=== PATIENT | female | born 1985 | race Caucasian/White ===

== ENCOUNTER 2019-03-07 08:41 | Emergency (ER) | payer SELFPAY ==
[~2019-03-07] VITALS: Ht 162.6 cm; Wt 63.5 kg
[2019-03-07] MEDS ORDERED: ACETAMINOPHEN 325 MG TABLET PO ONE (09:00)
[2019-03-07] MEDS ORDERED: ONDANSETRON ODT 4 MG TAB.RAPDIS SL ONE (09:00)
[2019-03-07] MEDS ORDERED: ONDANSETRON ODT 4 MG TAB.RAPDIS ONE (09:01)
[2019-03-07] MEDS ORDERED: ACETAMINOPHEN 325 MG TABLET ONE (09:01)
--- NOTE | 2019-03-07 09:05 | NUR ---
PATIENT C/O CHEST PAIN. 12 LEAD EKG DONE IMMEDIATELY. PLACED ON A MONITOR.
--- NOTE | 2019-03-07 09:44 | NUR ---
PATIENT STATES PAIN HAS DIMINIHSED. DC AND FOLLOWUP INSTRUCTIONS GIVEN AND EXPLAINED TO PATIENT (IN [place] WITH OTHER STAFF) WHO STATES SHE UNDERSTANDS ALL INSTRUCTIONS.
[2019-03-07 09:46] VITALS: BP 121/68
== END 2019-03-07 09:47 | disposition home or self-care (01) ==
LOC: ER 08:41
DX: R00.2 Palpitations (principal); R11.0 Nausea; R51 Headache
CPT/HCPCS: 36415; 70030-TC; 93005; A4663; Q0162